=== PATIENT | male | born 1970 | race Caucasian/White ===

== ENCOUNTER → 2017-08-01 14:32 | Outpatient (CLI) | payer OTHER, SELFPAY ==
[2017-08-01 16:22] LABS: Creatinine, Serum 0.86 mg/dL (0.70-1.30); EST Glomerular Filtration Rate 101 mL/min (>60); Est Glom Filt Rate - Afr Amer 122 mL/min (>60)
== END ==
PROVIDERS: Family Provider Family Medicine; PCP Family Medicine; Visit Provider Otolaryngology
DX: H91.21 Sudden idiopathic hearing loss, right ear (principal)
CPT/HCPCS: 36415; 82565

== ENCOUNTER → 2017-08-06 07:11 | Outpatient (CLI) | payer OTHER, SELFPAY ==
--- NOTE | 2017-08-06 07:19 | MRI_ITS ---
STUDY: MRI BRAIN WITH AND WITHOUT CONTRAST REASON FOR EXAM: Male, 47 years old. Sudden hearing loss in right anterior x3 weeks. Hearing loss in left ear since childhood. TECHNIQUE: Standardized multiplanar fat and water weighted pulse sequences were obtained. 10 ml of Gadavist contrast material was administered intravenously for the contrast portion of the examination. COMPARISON: None. FINDINGS: No restricted diffusion to suspect acute or subacute ischemic infarct. No focal signal abnormalities throughout the brain parenchyma. The kirby matter, white matter, ventricles and cisterns are within normal limits. This CT sections through the internal auditory canals show normal 7th and 8th nerve bundles. The cochlea, semicircular canals and vestibule are within normal limits. Following IV contrast administration, there are no enhancing lesions intraaxially or extra-axially. No enhancing lesions along the 7th and 8th nerve bundles. No abnormal contrast enhancement of either membranous labyrinth. Normal size of the ventricles and extra-axial spaces for the patient's age. Normal white matter tracts of the supratentorial brain. Normal bilateral basal ganglia. Normal thalami. There is no extra-axial fluid accumulation. Normal flow voids within the major intracranial circulation suggesting patency by spin echo criteria. Normal venous enhancement. There is no enhancing intra-axial or extra-axial abnormality. Normal sella turcica, pituitary gland, infundibular stalk, optic chiasm and hypothalamus. Normal tectal plate and pineal gland. Normal midbrain, coretta and medulla. Normal cerebellum. Normal basal cisterns. Normal bilateral temporal bones. Normal bilateral internal auditory canals. No demonstrated orbital abnormality, within the constraints of a routine brain study. Minimal mucosal edema in the maxillary sinuses. Small benign mucus retention cyst in the right maxillary sinus. Normal calvarium and skull base. Normal visualized soft tissue structures. Normal visualized upper cervical spine. MRI/Brain W/WO Contrast IMPRESSION: Normal MRI of the brain and internal auditory canals with and without intravenous contrast. COMMENT: Baseline CT of the temporal bones may be helpful for further evaluation. Electronically Signed: Timbo Villa MD at 13:55 EDT , Service support ,
== END ==
PROVIDERS: Family Provider Family Medicine; PCP Family Medicine; Visit Provider Otolaryngology
DX: H91.21 Sudden idiopathic hearing loss, right ear (principal)
CPT/HCPCS: 70553; A9585

== ENCOUNTER 2017-09-03 22:19 | Emergency (ER) | payer OTHER, SELFPAY ==
[2017-09-03 22:20] VITALS: BP 145/96; PULSE 86; RESP 17; TEMP 36.8; O2SAT 93; BMI 30.2
[2017-09-04 00:21] LABS: Absolute Neutrophil Count 7.4 X10^3/uL (2.0-7.7); Basophil# 0.02 X10^3/uL; Basophil% 0.2 % (0-1); Eosinophil# 0.25 X10^3/uL; Hematocrit 45.4 % (40-54); Hemoglobin 15.2 g/dl (13.0-16.5); Mean Corp Hgb Conc 33.5 g/gl (32-36); Mean Corpuscular Hgb 30.6 pg (27.0-32.0); Mean Corpuscular Volume 91.3 fL (80-94); Mean Platelet Vol. 10.2 fl (6.2-12.0); Monocyte# 1.11 X10^3/uL; Monocyte% 8.8 % (0-10); Neutrophil # 7.43 X10^3/uL (2.7-7.7); Neutrophil % 58.6 % (47-70); Platelet Count 230 K/mm3 (150-450); RBC Distribution Width CV 13.2 % (11.6-14.6); RBC Distribution Width SD 43.9 fl (35.1-43.9); Red Blood Count 4.97 M/mm3 (4.6-6.2); White Blood Count 12.7 K/mm3 (4.4-11.0)
[2017-09-04 00:23] LABS: POSITIVE COUNT NO; POSITIVE DIFFERENTIAL NO; POSITIVE MORPHOLOGY NO
[2017-09-04] MEDS: Ketorolac 30 MG/ML Syringe IV (00:25)
[2017-09-04 00:26] VITALS: BP 126/76; PULSE 78; RESP 18; O2SAT 97
--- NOTE | 2017-09-04 00:30 | ED.DCSUM_ITS ---
- ER Visit Summary Date of Service: 09/04/17 Chief Complaint: Right ear pain History of Present Illness: The patient is a 47 M who had sudden hearing loss in July. He is scheduled to see a neurosurgeon in [place] for a cochlear implant. He wears a hearing aid in his right ear. Tonight he developed rather sudden onset of swelling just anterior to his right ear that extends to the angle of the mandible. The area is painful to touch. There is no overlying skin erythema. He has no dental pain. Physical Examination: Vital signs are unremarkable. Patient sitting upright in bed no acute distress. Head neck examination reveals TMs to be clear bilaterally. He does have a painful mass just anterior to the right ear extending to the angle of the jaw. There is no overlying cellulitis. Heart is regular rate and rhythm. lung sounds are clear. Abdomen is soft nontender. Test Results: CBC was a white count 12.7 with normal differential. Chemistry studies are normal. CT the facial bones with contrast is obtained that shows mild increased aeration of the mastoid air cells. Sinus disease is noted. On my review of the images the right parotid gland is significantly enlarged when compared to the left. There is no evidence of focal abscess. Emergency Department Course and Treatment: Patient was given Toradol IV for pain. At this time patient be treated the course of Augmentin. I believe he has parotitis. Patient was instructed to suck on lemon candies. Treatment Plan: [] Disposition: Discharge Impression: Parotitis This note was generated with [employer] dictation software. It may contain incorrect words, spelling, and punctuation that were not noted in review of the chart prior to signing ED Disposition - Plan for ED Patient: Chief Complaint: Ear Problem Referrals: Sarkis Camacho MD [Primary Care Provider] -
[2017-09-04 00:39] LABS: Anion Gap 4 (5-15); BUN 17 mg/dL (7-18); BUN/Creat Ratio 17.9 RATIO (10-20); Calcium,Total 8.7 mg/dL (8.5-10.1); Chloride 108 mmol/L (98-107); Creatinine, Serum 0.95 mg/dL (0.70-1.30); EST Glomerular Filtration Rate 90 mL/min (>60); Est Glom Filt Rate - Afr Amer 109 mL/min (>60); Estimated Creatinine Clearance 105.51 ml/min; Glucose 91 mg/dL (74-106); Potassium 3.7 mmol/L (3.5-5.1); Sodium Level 141 mmol/L (136-145)
--- NOTE | 2017-09-04 01:29 | ED.DEP ---
ED Disposition - Plan for ED Patient: Disposition: Home or Assisted Living Chief Complaint: Ear Problem Instructions: ED Submandibular Gland Infec Prescriptions: Amox/Clavulanate Tablet [Augmentin Tablet] 875 mg PO Q12H #20 tablet Referrals: Sarkis Camacho MD [Primary Care Provider] - Devin Ospina MD [STAFF PHYSICIAN] - As Needed
[2017-09-04] MEDS: Amox/Clavulanate 875 MG Tablet PO (01:42)
[2017-09-04 02:01] VITALS: BP 124/74; PULSE 78; RESP 18; O2SAT 100
--- NOTE | 2017-09-04 23:09 | CT_ITS ---
STUDY: CT FACIAL BONES WITH CONTRAST REASON FOR EXAM: Male, 47 years old. Healing loss and right ear pain. Swelling. Hypertension. RADIATION DOSAGE (If Supplied By Facility): CTDIvol = ( 29.38 ) mGy, DLP = ( 569.49 ) mGycm TECHNIQUE: The patient was scanned in a multi detector CT scanner. Transaxial imaging was performed following the intravenous administration of 100ML ml of Isovue 300 contrast material. Sagittal and coronal images were reconstructed. Individualized dose optimization techniques were used for this CT. COMPARISON: None. FINDINGS: Normal soft tissue structures. Normal orbital hartman and orbital contents. Normal nasal bones and anterior nasal spine. Normal facial bones. There is no demonstrated fracture. There is mild decreased aeration of the mastoid air cells bilaterally. The middle ears are well aerated bilaterally. The epitympanic spaces appear unremarkable. The scutum bilaterally appear intact. Part of the ossicles are visualized and appear unremarkable. Part of the inner ears structures are visualized and appear unremarkable as well. The external auditory canals appear symmetric without evidence of erosions. There is moderate mucosal thickening of the left maxillary sinus and mildly on the right side. The frontal sinuses and the sphenoid sinuses appear clear. There is mild mucosal thickening of the ethmoid sinuses. No air-fluid levels are seen. There is occlusion of the left ostiomeatal complex however, there is opening between the left maxillary sinus and the nasal cavity could be due to previous surgery. There is hypertrophy of the right middle and inferior nasal turbinates. 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 The right ostiomeatal complex is partially patent.. CT/Sinus/Facial Bone WITH Contras IMPRESSION: Mild decreased aeration of the mastoid air cells. Sinus disease. Electronically Signed: Jose C Rodriguez MD at 1:14 EDT Tel , Service support ,
== END 2017-09-04 02:02 | disposition home or self-care (01) ==
PROVIDERS: Emergency Provider Emergency Medicine; Family Provider Family Medicine; PCP Family Medicine
DX: K11.20 Sialoadenitis, unspecified (principal); H91.21 Sudden idiopathic hearing loss, right ear; E66.9 Obesity, unspecified; Z68.30 Body mass index [BMI] 30.0-30.9, adult; Z72.0 Tobacco use
CPT/HCPCS: 70487; 80048; 85025; 96374; 99285; Q9967; A4216

== ENCOUNTER 2018-05-23 17:30 | Outpatient (RCR) | payer OTHER, SELFPAY ==
--- NOTE | 2018-04-09 15:51 | HP.PTEVAL_ITS ---
Patient's Visit Information ANNIE MCMAHON is a 48 year old M referred to Physical Therapy by Devin Ospina MD with a diagnosis of vertigo. Date of Evaluation: 04/09/18 Physical Therapist: Devin Huddleston DPT, OC - Visit Plan Frequency: 1x/Week Duration: 2 Months Plan: weekly x 4-8 for habituationa nd adaptation ex progressiona dn monitor balance. - Subjective Findings: B cochlear implants in November. Finished up with that Feb and has been dizzy when in motion ever since making him feel nauseaous. Concentration is down also. To neurosurgeon next Sunday. Feels good if sitting still. When moving feels like the room is spinning. Getting up out of bed he has to sit for 10 minutes as he is unsteady. Dizzyness can be a side effect of his surgery. Some days worse than others. No days have been great lately. Ok sitting. No falls but stumbles at times. 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 Not workign at this point because of those. Sleep is good. Works in office with lab work taking samples. Moves around for that and sometimes is worse. Slightly fearful of heights also as it makes him worse. Enjoys camping and watching sports and tubing. - Objective C/S aROM WFL, posture is fair. - B positional tests HD. Dizzyness up from both sides. Oculomotor is : no ystagmus with gaze or head shake. convergence causes some discomfort. - skew eye deviation. Pursuit and saccades are normal. VOR horiz 20 sec is 7/10 dizzyness for 60 sec. VOR vertical 9/10 for >60 sec. nods: 7/10. turns:not bad. 180 degree turns : worse L but not bad 2/10 transiently. - Balance Scores Functional Gait Assessment Score: 26 % Disability: 13.3400 CATSIB Score (Max score 120 seconds): 93 - Goals Goal 1:: Work without noticing increased dizzyness. Goal Time Frame: 4-6 Weeks Goal 2:: Get up in am without feeling dizzy or unsteady Goal Time Frame: 4-6 Weeks Goal 3:: Pt feel 90% back to normal as far as dizzyness and activity goes. Goal Time Frame: 6-8 Weeks Goal 4:: 25% improvement on DHI disability scale Goal Time Frame: 4-6 Weeks - Rehabilitation Potential Physical Therapy Diagnosis: vertigo Rehabilitation Potential: Fair - Anticipated Interventions Patient/Client Instruction: Educate patient on: Condition, Plan of Care For the Purpose of:: To increase tolerance to activity/condition/position Therapeutic Exercise to Include: Balance training Comment: adaptation and habituation For the Purpose of:: To increase tolerance to activity/condition/position Thank you for the opportunity to evaluate your patient. For Medicare and Medicare HMO plans, please review the plan of care and approve it. It will need to be FAXED BACK to us at [phone] for Medicare purposes. For Medicare only, by signing this I certify the plan of care. Please let me know if there are questions or concerns regarding this plan of care. Physician Signature: Date:
--- NOTE | 2018-05-23 18:03 | HP.PTDCSUM ---
HP - PT D/C Summary It has been my pleasure to treat ANNIE MCMAHON under orders from Devin Ospina MD, for the diagnosis of vertigo for a total of 5 visit(s). Discharge Date: 05/23/18 Please see the following information for a summary of their discharge status. - Subjective Subjective: HERNANDEZ 1x every 8-10 days and coincides with dizzyness. HERNANDEZ today at 8/10 and dizzy all day with looking down. Noise and loudness can cause HERNANDEZ, working in loud envisonment. Implants tone it down to tolerate it. Dizzyness is improving overall but still frustrating. Looking down(nodding down) is stil the biggest noticeable problem. Loking up not too bad and seems to help.Most other days are pretty good. Not really dizzy or HERNANDEZ 80% of days. Getting restful sleep helps. 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 - Overall Improvement % Improvement: 80 - Objective Objective/Function: Balance is very good. Dizzy day today whcih he seems to have every now and then without reasonsurgeon said I would. Up and down head movements still main problem when he has a bad day and not a big deal when he is having a good day. 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 - Goals Goal 1:: Work without noticing increased dizzyness. Goal Progress: Progressing Goal 2:: Get up in am without feeling dizzy or unsteady Goal Progress: Progressing Goal 3:: Pt feel 90% back to normal as far as dizzyness and activity goes. Goal Progress: Progressing Goal 4:: 25% improvement on DHI disability scale Goal Progress: Goal Met - Plan Plan: D/C, f/u with Dr. Ospina end of month. - D/C Information Discharge Comments: Doing well with significant improvement. will f/u with Dr. Arevalo dn surgeon as appropriate. If there are questions or concerns regarding this patient's physical therapy, please feel free to call me at [phone]. Thank you for the referral of this patient. Sincerely, Devin Huddleston, DPT, OCS, CSCS
== END 2018-05-23 19:00 | disposition home or self-care (01) ==
LOC: PT 17:30
PROVIDERS: Family Provider Family Medicine; PCP Family Medicine; Referring Provider Otolaryngology; Visit Provider Otolaryngology
DX: R42 Dizziness and giddiness (principal)
CPT/HCPCS: 97110; 97162; 97530